=== PATIENT | male | born 1980 | race Caucasian/White ===

== ENCOUNTER → 2016-09-12 | Outpatient (CLI) | payer OTHER ==
[~2016-09-12] MED LIST: CONRAY-43 43% 50ML VIAL (Q9960) As Ordered ONE; LIDOCAINE 1% MDV 20ML VIAL As Ordered ONE; TRIAMCINOLONE ACETONIDE SUSP 40 MG/ML VIAL (J3301) As Ordered ONE
--- NOTE | 2016-09-12 20:20 | REP ---
Right hip injection The procedure was performed under the direct supervision of Dr. Salcido. The benefits and risks including but not limited to pain infection and bleeding and anaphylaxis were explained to the patient and informed consent was obtained. The right femoral neck was localized using fluoroscopic guidance. The skin was prepped and draped in a sterile fashion. 1% lidocaine was used as a local anesthetic. Using fluoroscopic guidance a 22-gauge spinal needle was inserted and advanced to the femoral neck. 0.5 ml of Conray 43 was injected to verify placement. 10 ml of a solution containing 9 ml of 1% Xylocaine and 1 ml of Kenalog 40 mg was injected. The needle was then removed. The patient tolerated the procedure well and there were no immediate complications. 2 seconds of fluoro time was utilized for this procedure. Reviewed by RHONA Obrien 09/12/2016 03:59 PSigned by Maximino Salcido MD 09/12/2016 08:12 P
== END ==
LOC: M RADPRO 09:59
PROVIDERS: ATTEND Physician Assistant Medical
DX: M25.851 Other specified joint disorders, right hip (principal)
CPT/HCPCS: 20610; 77002; J3301; Q9960

== ENCOUNTER → 2016-10-17 | Outpatient (CLI) | payer OTHER ==
[~2016-10-17] MED LIST changes: -LIDOCAINE 1% MDV 20ML VIAL As Ordered ONE; -TRIAMCINOLONE ACETONIDE SUSP 40 MG/ML VIAL (J3301) As Ordered ONE
--- NOTE | 2016-10-17 09:36 | REP ---
MRI RIGHT HIP WITHOUT AND WITH CONTRAST ARTHROGRAM: 10/17/2016. Clinical history: Right hip pain. Evaluate for labral tear. Technique: Whole pelvic T1 and T2 STIR coronals, post arthrogram injection coronal T1 and fat suppressed T2, axial, sagittal and oblique axial fat suppressed T1 images and axial fat suppressed T2 sequence were performed. Findings: No prior study. The whole pelvic marrow signal shows symmetric appearance of that portion of iliac bones, sacrum, acetabuli, femoral heads, necks and trochanters along with the proximal femoral shafts. No bone bruise or fracture identified. Trace fluid in the hip joint spaces. Bladder only partially filled. No free fluid in the pelvis. No pelvic mass identified. The intrinsic and extrinsic pelvic, hip, thigh and buttock musculature is homogeneous and symmetric in signal. No hematoma or mass. After the arthrogram images, there is evidence of an anterior superior labral tear and labral degeneration of the superior labrum. 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 No loose body. I see no fluid or signal abnormality about the greater trochanter to suggest trochanteric tendinobursitis. The obturator internus, iliopsoas and hamstring tendon insertions were all grossly unremarkable. There is no inguinal adenopathy or mass. No inguinal adenopathy or inguinal hernia. Impression: 1. There is an anterior superior labral tear and labral degeneration of the superior labrum. On contrast arthrogram, there was no evidence of a loose body. 2. 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 Left side is not as well seen due to field of view. 3. I do not see other significant finding. Signed by Maximino Salcido MD 10/17/2016 05:05 P
--- NOTE | 2016-10-17 14:28 | REP ---
Right hip arthrogram The procedure was performed under the direction supervision of Dr. Salcido. The benefits and risks including but not limited to pain, infection, bleeding and anaphylaxis were explained to the patient and informed consent was obtained. The right femoral neck was localized using fluoroscopic guidance. Skin was prepped and draped in a sterile fashion. 1% lidocaine was used as a local anesthetic. Using fluoroscopic guidance a 22 gauge spinal needle was inserted and advanced to the femoral neck. 0.5 ml of Conray 43 was injected to verify placement. 11 ml of a solution containing 20 ml of sterile saline and 0.15 ml of ProHance was injected into the joint. The needle was removed and the patient was taken to MRI for postprocedural imaging. The the patient tolerated the procedure well and there were no immediate complications. 2 seconds of fluoro time was utilized for this procedure. Reviewed by RHONA Obrien 10/17/2016 09:33 ASigned by Maximino Salcido MD 10/17/2016 02:20 P
== END ==
LOC: M RADPRO 06:59
PROVIDERS: ATTEND Physician Assistant Medical
DX: M24.151 Other articular cartilage disorders, right hip (principal)
CPT/HCPCS: 27093; 73723; 77002; A9576; Q9960

== ENCOUNTER → 2017-07-08 | Outpatient (CLI) | payer OTHER ==
--- NOTE | 2017-07-08 19:35 | REP ---
Maxillofacial CT study without contrast: History: Allergic rhinitis. CT findings: The frontal sinuses are clear. Ethmoid air cells are normally pneumatized and a clear. There is mucosal thickening in one of the left posterior ethmoid air cells. Sphenoid sinuses are clear. Mastoid aeration is normal on the right. On the left, the mastoid air cells are underdeveloped. There is no evidence to suggest acute mastoiditis. Middle ear cavities are aerated bilaterally. Internal auditory canals are normal and symmetric. The bony nasal septum is in the midline. Nasal turbinate soft tissues are unremarkable and symmetric. Nasal polyp is seen. There are Ayanna cells bilaterally. As a result, there is developmental narrowing of the infundibulum of the ostiomeatal complex on both sides, although the OMCs are patent. Impression: Underdeveloped left mastoid sinuses. Mucosal thickening in one of the left posterior ethmoid air cells. Otherwise negative maxillofacial CT study. Patent OMCs with small Ayanna cells bilaterally. Signed by Jacinto Rolon MD 07/08/2017 09:44 P
== END ==
LOC: M RAD 17:46
PROVIDERS: ATTEND Otolaryngology
DX: J30.9 Allergic rhinitis, unspecified (principal); H70.892 Other mastoiditis and related conditions, left ear